=== PATIENT | female | born 1980 | race Caucasian/White ===

== ENCOUNTER 2022-05-05 09:14 | Emergency (ER) | payer OTHER ==
[~2022-05-05] VITALS: Ht 167.6 cm; Wt 81.6 kg
[2022-05-05] MEDS ORDERED: PRENATAL + DHA1 EAC1 (09:45)
== END 2022-05-05 15:17 | disposition home or self-care (01) ==
LOC: ER 09:14
DX: O26.892 Other specified pregnancy related conditions, second trimester (principal); Z3A.16 16 weeks gestation of pregnancy; N89.8 Other specified noninflammatory disorders of vagina; Z88.6 Allergy status to analgesic agent; Z88.8 Allergy status to other drugs, medicaments and biological substances

== ENCOUNTER 2022-07-03 18:12 | Inpatient (IN) | payer OTHER ==
[~2022-07-03] VITALS: Ht 152.4 cm; Wt 90.3 kg
[~2022-07-03 18:12] MED LIST: PRENATAL + DHA1 EAC1
[2022-07-04] MEDS ORDERED: VITAMIN D31250 MCG (09:01)
== END 2022-07-04 09:58 | disposition home or self-care (01) | DRG 833 ==
LOC: LDR 18:12
PROVIDERS: ADMIT Obstetrics & Gynecology Gynecology; ATTEND Obstetrics & Gynecology Gynecology
PROC: BY4CZZZ Ultrasonography of Second Trimester, Single Fetus (ICD-10-PCS; principal; 2022-07-03)
PROC: 4A1HXCZ Monitoring of Products of Conception, Cardiac Rate, External Approach (ICD-10-PCS; 2022-07-03)
DX: O26.892 Other specified pregnancy related conditions, second trimester (principal); T14.90XA Injury, unspecified, initial encounter; Z3A.25 25 weeks gestation of pregnancy; Z20.822 Contact with and (suspected) exposure to COVID-19; W17.89XA Other fall from one level to another, initial encounter; Y93.9 Activity, unspecified; Y92.9 Unspecified place or not applicable; Y99.9 Unspecified external cause status

== ENCOUNTER 2022-09-25 12:59 | Outpatient (CLI) | payer OTHER ==
[~2022-09-25 12:59] MED LIST changes: +VITAMIN D31250 MCG
== END 2022-09-25 13:33 | disposition home or self-care (01) ==
LOC: NST 12:59
PROVIDERS: ATTEND Obstetrics & Gynecology
DX: Z34.83 Encounter for supervision of other normal pregnancy, third trimester (principal)

== ENCOUNTER 2022-09-28 16:41 | Outpatient (CLI) | payer OTHER | END 2022-09-28 17:21 | disposition home or self-care (01) | LOC: NST 16:41 | PROVIDERS: ATTEND Obstetrics & Gynecology Maternal & Fetal Medicine | DX: Z34.83 Encounter for supervision of other normal pregnancy, third trimester (principal) ==

== ENCOUNTER 2022-10-01 07:38 | Inpatient (IN) | payer OTHER ==
[~2022-10-01] VITALS: Ht 165.1 cm; Wt 3.6 kg
== END 2022-10-04 14:15 | disposition home or self-care (01) | DRG 785 ==
LOC: NST 07:38 → O/R 07:50 → LDR 07:50 → O/R 11:46 → OB/GYN 13:22
PROVIDERS: ADMIT Obstetrics & Gynecology; ATTEND Obstetrics & Gynecology
PROC: 0UB70ZZ Excision of Bilateral Fallopian Tubes, Open Approach (ICD-10-PCS; 2022-10-01)
PROC: 4A1HXCZ Monitoring of Products of Conception, Cardiac Rate, External Approach (ICD-10-PCS; 2022-10-01)
PROC: 10D00Z1 Extraction of Products of Conception, Low, Open Approach (ICD-10-PCS; principal; 2022-10-01 20:30)
DX: O34.211 Maternal care for low transverse scar from previous cesarean delivery (principal); Z3A.38 38 weeks gestation of pregnancy; Z37.0 Single live birth; Z20.822 Contact with and (suspected) exposure to COVID-19; Z30.2 Encounter for sterilization

== ENCOUNTER 2023-04-09 10:52 | Outpatient (CLI) | payer OTHER | END 2023-04-09 11:02 | disposition home or self-care (01) | LOC: MAMO-SONO 10:52 | PROVIDERS: ATTEND Obstetrics & Gynecology | DX: N63.12 Unspecified lump in the right breast, upper inner quadrant (principal); N63.11 Unspecified lump in the right breast, upper outer quadrant; Z12.31 Encounter for screening mammogram for malignant neoplasm of breast ==

== ENCOUNTER 2023-04-30 12:49 | Outpatient (CLI) | payer OTHER | END 2023-04-30 12:50 | disposition home or self-care (01) | LOC: SONOGRAMA 12:49 | PROVIDERS: ATTEND Obstetrics & Gynecology | DX: N63.11 Unspecified lump in the right breast, upper outer quadrant (principal); N63.12 Unspecified lump in the right breast, upper inner quadrant ==